=== PATIENT | female | born 1960 | race Caucasian/White ===

== ENCOUNTER → 2017-03-07 14:26 | Outpatient (CLI) | payer OTHER, SELFPAY ==
[2017-03-07 16:25] LABS: Thyroid Stimulating Hormone 0.99 uIU/ml (0.358-3.740)
== END ==
PROVIDERS: Visit Provider Otolaryngology
DX: E03.9 Hypothyroidism, unspecified (principal)
CPT/HCPCS: 36415; 82310; 84439; 84443

== ENCOUNTER → 2018-02-27 14:42 | Outpatient (CLI) | payer OTHER, SELFPAY ==
[2018-02-27 16:46] LABS: Calcium 8.7 mg/dL (8.5-10.1); Free T4 (Free Thyroxine) 1.28 ng/dl (0.76-1.46); Thyroid Stimulating Hormone 1.21 uIU/ml (0.358-3.740)
== END ==
PROVIDERS: Visit Provider Otolaryngology
DX: E01.0 Iodine-deficiency related diffuse (endemic) goiter (principal); E03.9 Hypothyroidism, unspecified
CPT/HCPCS: 36415; 82310; 84439; 84443

== ENCOUNTER → 2018-03-31 10:01 | Outpatient (CLI) | payer OTHER, SELFPAY ==
--- NOTE | 2018-03-31 10:12 | MM_ITS ---
MM Dig screening mamm BI w/CAD CAD Screening COMPARISON: Digital mammograms with CAD 01/30/2014 and 04/22/2015 INDICATION: There is no personal or family history of breast cancer TECHNIQUE: Standard CC and MLO images were obtained. R2 CAD reviewed. FINDINGS: The breasts are composed primarily of fat with minimal scattered fibroglandular densities throughout each breast. Again noted is a stable subtle area of asymmetric glandular density outer quadrant of the right breast. There are few microcalcifications in each breast. There is no suspicious lesion and there are no suspicious microcalcifications. IMPRESSION: Fatty type breast parenchyma with no suspicious lesion seen BI-RADS Category: 2 Benign Finding(s) RECOMMENDED FOLLOW-UP: 1YR - 1 YEAR FOLLOW-UP (A letter has been sent to the patient regarding results of the study.)
== END ==
PROVIDERS: PCP Internal Medicine Adolescent Medicine; Visit Provider Internal Medicine Adolescent Medicine
DX: Z12.31 Encounter for screening mammogram for malignant neoplasm of breast (principal)
CPT/HCPCS: 77067

== ENCOUNTER → 2019-03-19 12:36 | Outpatient (CLI) | payer OTHER, SELFPAY ==
[2019-03-19 13:24] LABS: Free T4 (Free Thyroxine) 1.25 ng/dl (0.76-1.46); Thyroid Stimulating Hormone 1.45 uIU/ml (0.358-3.740)
== END ==
PROVIDERS: Visit Provider Otolaryngology
DX: E03.9 Hypothyroidism, unspecified (principal)
CPT/HCPCS: 36415; 84439; 84443

== ENCOUNTER → 2019-09-26 07:55 | Outpatient (CLI) | payer OTHER, SELFPAY ==
[2019-09-26 14:24] LABS: Chloride 104 mmol/L (98-107); Sodium 139 mmol/L (136-145)
[2019-09-26 14:25] LABS: Potassium 4.5 mmoL/L (3.5-5.1)
[2019-09-26 14:27] LABS: Alanine Aminotransferase 29 U/L (12-78); Albumin Level 3.9 g/dl (3.5-5.0); Albumin/Globulin Ratio 1.3 (1.1-1.8); Alkaline Phosphatase 100 U/L (38-126); Anion Gap 11.5 mEq/L (5-15); Aspartate Amino Transferase 27 U/L (14-36); Bilirubin,Total 0.7 mg/dl (0.2-1.3); Blood Urea Nitrogen 23 mg/dl (7-17); Calcium 9.5 mg/dl (8.4-10.2); Carbon Dioxide 28 mmol/L (22.0-30.0); Cholesterol 191 mg/dl (140-200); Estimated Glomerular Filt Rate 74 ml/min (>60); GFR (African American) 89 ML/MIN (>60); Globulin 3.1 g/dL (1.3-3.2); Glucose 102 mg/dl (74-100); Triglycerides 145 mg/dl (30-150); VLDL Cholesterol 29 mg/dL (0-40)
[2019-09-26 14:28] LABS: Chol/HDL Ratio 3.1 (1-3.5); HDL Cholesterol 62 mg/dl (40-60)
[2019-09-26 14:39] LABS: Direct LDL Cholesterol 103.86 mg/dL (100-129)
[2019-09-26 14:45] LABS: Triiodothryronine (T3) Uptake 37 % (23.5-40.5)
[2019-09-26 14:46] LABS: Free Thyroxine Index 3.6 ug/dL (5.93-13.13); T4 (Thyroxine) 9.8 ug/dl (5.53-11.0)
[2019-09-26 14:59] LABS: Thyroid Stimulating Hormone 0.78 uIU/mL (0.465-4.68)
[2019-09-26 16:08] LABS: 25-OH Vitamin D, Total 35.7 ng/mL (30-100)
== END ==
PROVIDERS: Visit Provider Internal Medicine Adolescent Medicine
DX: E78.5 Hyperlipidemia, unspecified (principal); E55.9 Vitamin D deficiency, unspecified; E04.2 Nontoxic multinodular goiter
CPT/HCPCS: 36415; 80053; 80061; 82306; 84436; 84443; 84479

== ENCOUNTER → 2019-10-15 15:49 | Outpatient (CLI) | payer OTHER, SELFPAY ==
--- NOTE | 2019-10-15 15:52 | MM_ITS ---
PROCEDURE: MM DIG SCREENING MAMM BI W/CAD Digital Breast Tomosynthesis Included CLINICAL INDICATION: SCREENING There is no personal or family history of breast cancer. COMPARISON: MG DMSB DIG MAMM-SCREEN [place] from 01/30/2014 MG DMSB DIG MAMM-SCREEN [place] from 04/22/2015 MG SCBI MM Dig screening mamm BI w/CAD from 03/31/2018 TECHNIQUE: Standard CC and MLO images and 3D Tomosynthesis was obtained. R2 CAD reviewed. FINDINGS: The breasts are composed primarily of fat with mild scattered fibroglandular densities throughout each breast. There are few benign-appearing microcalcifications in each breast. There is no suspicious lesion in either breast and no suspicious microcalcifications. IMPRESSION: Fibrofatty parenchyma with no suspicious lesions seen BI-RAD Category: 2 Benign Finding(s) FOLLOW-UP: 1YR 1 Year Follow-up (A letter has been sent to the patient regarding results of the study.) Dictated by: Dr. Stanley Cueva MD 10/16/2019 08:16 Dr. Stanley Cueva MD in [place] 10/16/2019 08:16
== END ==
PROVIDERS: PCP Internal Medicine Adolescent Medicine; Visit Provider Internal Medicine Adolescent Medicine
DX: Z12.31 Encounter for screening mammogram for malignant neoplasm of breast (principal)
CPT/HCPCS: 77063; 77067

== ENCOUNTER → 2020-03-21 16:22 | Outpatient (CLI) | payer OTHER, SELFPAY ==
[2020-03-21 17:55] LABS: Thyroid Stimulating Hormone 1.99 uIU/mL (0.465-4.68)
== END ==
PROVIDERS: Visit Provider Otolaryngology
DX: E03.9 Hypothyroidism, unspecified (principal)
CPT/HCPCS: 36415; 84439; 84443

== ENCOUNTER → 2020-03-26 07:11 | Outpatient (CLI) | payer OTHER, SELFPAY ==
[2020-03-26 14:55] LABS: Chloride 106 mmol/L (98-107); Potassium 4.2 mmoL/L (3.5-5.1); Sodium 140 mmol/L (136-145)
[2020-03-26 14:58] LABS: Alanine Aminotransferase 20 U/L (12-78); Albumin Level 3.9 g/dl (3.5-5.0); Albumin/Globulin Ratio 1.2 (1.1-1.8); Alkaline Phosphatase 96 U/L (38-126); Anion Gap 9.2 mEq/L (5-15); Aspartate Amino Transferase 24 U/L (14-36); Bilirubin,Total 0.7 mg/dl (0.2-1.3); Blood Urea Nitrogen 22 mg/dl (7-17); Calcium 9.2 mg/dl (8.4-10.2); Carbon Dioxide 29 mmol/L (22.0-30.0); Chol/HDL Ratio 3.2 (1-3.5); Cholesterol 184 mg/dl (140-200); Estimated Glomerular Filt Rate 73 ml/min (>60); GFR (African American) 89 ML/MIN (>60); Globulin 3.3 g/dL (1.3-3.2); Glucose 108 mg/dl (74-100); HDL Cholesterol 57 mg/dl (40-60); Total Protein,Serum 7.2 g/dl (6.3-8.2); Triglycerides 173 mg/dl (30-150); VLDL Cholesterol 35 mg/dL (0-40)
[2020-03-26 15:03] LABS: Basophils % 0.4 % (0.1-2.0); Eosinophils # 0.1 K/mm3 (0.0-0.4); Eosinophils % 1.5 % (0.1-12.0); Hematocrit 38.9 % (37.0-47.0); Lymphocytes # 1.7 K/mm3 (0.7-4.5); Lymphocytes % 31.1 % (10-50); Mean Corpuscular HGB Conc 33.3 g/dL (31.8-35.4); Mean Corpuscular Hemoglobin 30.6 pg (27.0-31.2); Mean Corpuscular Volume 91.7 fl (81-99); Mean Platelet Volume 8.6 fl (7.4-10.4); Monocytes # 0.4 K/mm3 (0.1-1.0); Monocytes % 6.8 % (1.7-9.3); Neutrophils # 3.3 K/mm3 (1.8-7.8); Neutrophils % 60.2 % (37.0-80.0); Platelet Count 343 K/mm3 (142-424); Red Blood Count 4.24 M/mm3 (4.20-5.40); Red Cell Distribution Width 13.8 % (11.5-17.5); White Blood Count 5.5 K/mm3 (4.8-10.8)
[2020-03-26 15:10] LABS: Direct LDL Cholesterol 91.65 mg/dL (100-129)
[2020-03-26 15:15] LABS: 25-OH Vitamin D, Total 37.4 ng/mL (30-100)
[2020-03-27 16:50] LABS: Hemoglobin A1C 5.6 % (4.0-6.0)
== END ==
PROVIDERS: Visit Provider Internal Medicine Adolescent Medicine
DX: E78.5 Hyperlipidemia, unspecified (principal); E55.9 Vitamin D deficiency, unspecified; R73.9 Hyperglycemia, unspecified
CPT/HCPCS: 36415; 80053; 80061; 82306; 83036; 85025

== ENCOUNTER → 2021-02-26 09:28 | Outpatient (CLI) | payer OTHER, SELFPAY ==
[2021-02-26 15:25] LABS: Alanine Aminotransferase 18 U/L (12-78); Albumin/Globulin Ratio 1.4 (1.1-1.8); Alkaline Phosphatase 115 U/L (38-126); Anion Gap 8.4 mEq/L (5-15); Aspartate Amino Transferase 26 U/L (14-36); Bilirubin,Total 0.4 mg/dl (0.2-1.3); Blood Urea Nitrogen 28 mg/dl (7-17); Carbon Dioxide 29 mmol/L (22.0-30.0); Chloride 105 mmol/L (98-107); Cholesterol 183 mg/dl (140-200); Estimated Glomerular Filt Rate 73 ml/min (>60); GFR (African American) 89 ML/MIN (>60); Globulin 2.9 g/dL (1.3-3.2); Glucose 102 mg/dl (74-100); HDL Cholesterol 61 mg/dl (40-60); Potassium 4.4 mmoL/L (3.5-5.1); Sodium 138 mmol/L (136-145); Total Protein,Serum 6.9 g/dl (6.3-8.2); Triglycerides 72 mg/dl (30-150); VLDL Cholesterol 14 mg/dL (0-40)
[2021-02-26 15:36] LABS: Direct LDL Cholesterol 97.43 mg/dL (100-129)
[2021-02-26 15:40] LABS: 25-OH Vitamin D, Total 40.9 ng/mL (30-100)
== END ==
PROVIDERS: Visit Provider Nurse Practitioner Family
DX: Z00.00 Encounter for general adult medical examination without abnormal findings (principal); I10 Essential (primary) hypertension; E78.5 Hyperlipidemia, unspecified; E89.0 Postprocedural hypothyroidism; E55.9 Vitamin D deficiency, unspecified
CPT/HCPCS: 36415; 80053; 80061; 82306; 84443

== ENCOUNTER → 2021-03-17 12:45 | Outpatient (CLI) | payer OTHER, SELFPAY ==
--- NOTE | 2021-03-17 12:48 | MM_ITS ---
PROCEDURE INFORMATION: Exam: MG Bilateral Screening 3D Mammography Exam date and time: 03/17/2021 12:48 PM Age: 60 years old Clinical indication: Screening mammogram TECHNIQUE: Imaging protocol: Bilateral Screening tomosynthesis and 2D mammography including computer-aided detection (CAD) when performed. COMPARISON: 1. MG MM DIG SCREENING MAMM BI W/CAD 10/15/2019 3:52 PM 2. MG SCBI MM Dig screening mamm BI w/CAD 03/31/2018 10:36 AM 3. MG DMSB DIG MAMM-SCREEN [place] 04/22/2015 3:40 PM 4. MG DMSB DIG MAMM-SCREEN [place] 01/30/2014 4:52 PM FINDINGS: MAMMOGRAPHY: Breast composition: There are scattered areas of fibroglandular density. Mass: Mass within the upper outer right middle 1/3 measuring 10 mm should be further assessed with spot views in CC/MLO projection. Ultrasound should also be performed. Architectural distortion: No new or suspicious architectural distortion. Calcifications: No new or suspicious calcifications are present Asymmetric density: There is a 6 mm focal asymmetry within the anterior-middle 1/3 left breast , only well delineated 6 cm posterior to the left nipple on CC view. This should be further assessed with spot views in CC/MLO and full lateral projection to confirm and further characterize. Ultrasound should also be performed. Skin thickening: None. Axillary adenopathy: None. IMPRESSION: 1. Mass within the upper outer right middle 1/3 measuring 10 mm should be further assessed with spot views in CC/MLO projection. Ultrasound should also be performed. 2. There is a 6 mm focal asymmetry within the anterior-middle 1/3 left breast , only well delineated 6 cm posterior to the left nipple on CC view. This should be further assessed with spot views in CC/MLO and full lateral projection to confirm and further characterize. Ultrasound should also be performed. ASSESSMENT: BI-RADS category 0: Incomplete-need additional imaging evaluation
== END ==
PROVIDERS: PCP Internal Medicine Adolescent Medicine; Visit Provider Internal Medicine Adolescent Medicine
DX: Z12.31 Encounter for screening mammogram for malignant neoplasm of breast (principal)
CPT/HCPCS: 77063; 77067

== ENCOUNTER → 2021-04-08 14:26 | Outpatient (CLI) | payer OTHER, SELFPAY ==
--- NOTE | 2021-04-08 14:30 | MM_ITS ---
PROCEDURE INFORMATION: Exam: US Right Breast, Complete US Left Breast, Complete MG Bilateral Diagnostic Breast Tomosynthesis Exam date and time: 04/08/2021 2:30 PM Age: 60 years old Clinical indication: Callback for additional assessment of right upper outer 10 mm mass and left anterior 6 mm asymmetry only identified on CC view screening mammogram 03/17/21 TECHNIQUE: Imaging protocol: Complete ultrasound of all four quadrants of the Right breast and the retroareolar regions, including ultrasound of the axilla when performed. Complete ultrasound of all four quadrants of the Left breast and the retroareolar regions, including ultrasound of the axilla when performed. Bilateral Diagnostic tomosynthesis and 2D mammography including computer-aided detection (CAD) when performed. Unilateral or bilateral exam. COMPARISON: 1. MG MM DIG SCREENING MAMM BI W/CAD 03/17/2021 12:57 PM 2. MG MM DIG SCREENING MAMM BI W/CAD 10/15/2019 3:52 PM 3. MG SCBI MM Dig screening mamm BI w/CAD 03/31/2018 10:36 AM 4. MG DMSB DIG MAMM-SCREEN [place] 04/22/2015 3:40 PM FINDINGS: MAMMOGRAPHY: Right: No persistent mass, architectural distortion, or suspicious calcifications are present to suggest malignancy. Findings from recent screening mammography probably reflect overlapping fibroglandular tissue Left: No persistent mass, architectural distortion, or suspicious calcifications are present to suggest malignancy. Findings from recent screening mammography probably reflect overlapping fibroglandular tissue ULTRASOUND: Bilateral complete breast ultrasound was performed including 4 quadrants, retroareolar and axillary images No suspicious solid or cystic mass is present. No benign-appearing solid or cystic mass is present. No architectural distortion or shadowing is present. No axillary adenopathy is present. IMPRESSION: No mammographic or sonographic evidence of malignancy. Recommend annual screening mammography unless otherwise clinically indicated. ASSESSMENT: BI-RADS category 1: Negative
== END ==
PROVIDERS: PCP Internal Medicine Adolescent Medicine; Visit Provider Internal Medicine Adolescent Medicine
DX: R92.8 Other abnormal and inconclusive findings on diagnostic imaging of breast (principal)
CPT/HCPCS: 76641; 77062; 77066; G0279

== ENCOUNTER → 2021-04-18 19:57 | Outpatient (CLI) | payer OTHER, SELFPAY | PROVIDERS: PCP Internal Medicine Adolescent Medicine; Visit Provider Surgery | DX: Z01.812 Encounter for preprocedural laboratory examination (principal); Z11.52 Encounter for screening for COVID-19; Z12.11 Encounter for screening for malignant neoplasm of colon | CPT/HCPCS: C9803; U0003; U0005 ==

== ENCOUNTER 2021-04-21 09:46 | Day surgery (SDC) | payer OTHER, SELFPAY ==
[2021-04-21] VITALS (8 sets, daily range): BP systolic 92–152; BP diastolic 54–84; PULSE 54–65; RESP 16; TEMP 36.9; O2SAT 94–98; BMI 33.6
--- NOTE | 2021-04-21 10:06 | HMH.ANESCL ---
[facility] Anesthesia Checklist - Patient Identification Patient Identification: Arm Band - Structural Data Admitted From: Home Planned Operative Procedure/s: Colonoscopy Consent for Planned Operative Procedure(s) Verified: Yes - NPO Status Verified Time NPO: 00:00 - Airway Assessment C-Spine Mobility Assessed: Yes TMJ Mobility Assessed: Yes Dentition: Good Dentition - Neurological Assessment Level of Consciousness: Awake Hx Seizures: No Numbness or tingling in extremities: No - Anesthesia Plan Anesthesia Risk discussed: Yes Anesthesia Plan: Verified ASA Class: II Anesthesia Type: MAC [facility] History I have reviewed the patient's past medical history: Yes Medical History: Reports:: Hyperlipidemia, Hypertension Denies:: Cancer, Diabetes Mellitus Type 1, Diabetes Mellitus Type 2, Seizures *Have you ever received a pneumonia vaccine?: No *Have you received a flu vaccine this season?: Yes Other Medical History: Reports: Thyroid Disease Anesthesia experience/problems:: None Other Surgeries: Yes: Thyroidectomy Amputation: No Fractures: No - *Social History Last grade of school completed: High school graduate Smoking Status: Never smoker Alcohol Intake: never Substance Use Type: denies use *Occupational Status:: employed Housing: house Household Members: family *Travel in the last 8 weeks: None Family Hx:: Heart Attack
--- NOTE | 2021-04-21 10:42 | HMH.SCOPE ---
- Procedure: Date: 04/21/21 Patient Date of :: 1960 Procedure Performed:: Colonoscopy Indications:: Screening Performing Provider:: Matthew Bruner MD Referring Provider:: . Sedation:: Monitored anesthesia care Procedure:: After informed consent was obtained the patient was taken to the endoscopy suite. Sedation ensued after the patient was transferred to the left lateral decubitus position. Pulse, blood pressure, and oxygen saturation were monitored throughout the procedure. Digital rectal exam revealed no significant abnormality. The colonoscope was placed in position. The entire colon was evaluated. The colonoscope was carefully removed and the patient was transferred to recovery in stable condition. Please see findings and specimens below for detail. Findings:: Bowel preparation relatively poor Hemorrhoidal tags Profound tortuosity/spasticity Specimens:: None Recommendations:: Repeat colonoscopy in 2-3 years secondary to limited bowel preparation, spasticity, and tortuosity. Complications:: No immediate with the exception of limited bowel preparation. Estimated blood obtained (mL): 0
== END 2021-04-21 11:38 | disposition home or self-care (01) ==
LOC: OUTP 09:47
PROVIDERS: PCP Internal Medicine Adolescent Medicine; Visit Provider Surgery
PROC: 0DJD8ZZ Inspection of Lower Intestinal Tract, Via Natural or Artificial Opening Endoscopic (ICD-10-PCS; CPT 45378; principal; 2021-04-21 10:30)
DX: Z12.11 Encounter for screening for malignant neoplasm of colon (principal); K56.2 Volvulus; K64.9 Unspecified hemorrhoids; E78.5 Hyperlipidemia, unspecified; I10 Essential (primary) hypertension; Z82.3 Family history of stroke; Z79.899 Other long term (current) drug therapy
CPT/HCPCS: 45378

== ENCOUNTER 2023-06-22 14:53 | Outpatient (POV) | payer OTHER, SELFPAY | END 2023-06-22 23:59 | disposition home or self-care (01) | LOC: SC 14:54 | PROVIDERS: Visit Provider Specialist/Technologist | DX: Z00.00 Encounter for general adult medical examination without abnormal findings (principal) ==

== ENCOUNTER 2024-03-19 09:54 | Outpatient (CLI) | payer OTHER, SELFPAY ==
--- NOTE | 2024-03-19 09:55 | US_ITS ---
FINAL REPORT TECHNIQUE: Real-time grayscale and color ultrasound of the thyroid was performed. CLINICAL HISTORY: history of Thyroidectomy COMPARISON: 12/08/2015 FINDINGS: Patient has undergone thyroidectomy since the previous exam. There is a small echogenic focus with shadowing in the left thyroid fossa measuring 4 mm. This may be related to dystrophic or postoperative calcification. No definite residual thyroid tissue identified. IMPRESSION: No definite residual thyroid tissue identified. Reviewed, Interpreted and Dictated by Alex Mccann MD Transcribed by Shona Donis Authenticated and [facility]
[2024-03-19 12:17] LABS: Free T4 (Free Thyroxine) 1.41 ng/dl (0.78-2.19)
[2024-03-19 12:32] LABS: Thyroid Stimulating Hormone 0.93 uIU/mL (0.465-4.68)
== END 2024-03-19 23:59 | disposition home or self-care (01) ==
PROVIDERS: PCP Internal Medicine Adolescent Medicine; Visit Provider Nurse Practitioner
DX: E03.9 Hypothyroidism, unspecified (principal)
CPT/HCPCS: 36415; 76536; 84439; 84443

== ENCOUNTER 2024-12-11 12:51 | Outpatient (CLI) | payer OTHER, SELFPAY ==
--- OUTSIDE RECORDS SUMMARY | 2024-05-19 17:30 | XMS_ITS ---
Author Organization [facility] Address [address] [facility] [address] [facility] [address] [place] [address] Care Team Providers Care Substation Operator Transforming Name Role Phone Cristiano Smith Primary Care Provider Migration, Provider Unavailable Unavailable REASON FOR VISIT [facility] Conversion Encounter Medications Medication SIG (Take, Route, Frequency, Duration) Notes Start Date End Date Status Atorvastatin Calcium 40 MG 1 tab(s) oral ly once a day (at bedtime); Duration: 90 days Active Meloxicam 15 MG 1/2 tab(s) orally on ce a day; Duration: 30 day(s) Active Levothyroxine Sodium 137 MCG 1 tab(s) or ally once a day; Duration: 90 days Active Carvedilol 12.5 MG 1 tab(s) orally 2 ti mes a day; Duration: 90 days 12/29/2023 Active hydroCHLOROthiazide 25 MG 1 tab(s) orall y once a day; Duration: 90 days 02/23/2024 Active Encounters Encounter Location Date Provider Diagnosis [facility] [address] [place] [address] [facility] [address] [place] [address] 05/19/2024 Provider Migration Hypertension, essential I10 Assessments Encounter Date Diagnosis (ICD Code) Assessment Notes Treatment Notes Treatment Clinical Notes Section Notes 05/19/2024 Hypertension, essential (ICD-10 - I10) Plan Of Treatment Medication Medication Name Sig Start Date Stop Date Notes Atorvastatin Calcium 40 MG 1 tab(s) oral ly once a day (at bedtime); Duration: 90 days hydroCHLOROthiazide 25 MG 1 tab(s) orall y once a day; Duration: 90 days 02/23/2024 Next Appt Details Provider Name:Cristiano Robles Luis, 01/29/2025 10:00:00 AM, [address], [address], Progress Notes * Nidhi FLANNERY LDOB: [birth year] (64 yo F)Acc No.[id number]:05/19/2024 Patient: Nidhi HOFFMAN Provider: Latha rudolph Migration :1960 A ge:63 Y S ex:Female Date:05/19/2024 Address:[address] [place] [address], [id number] Pcp:Cristiano Smith Subjective: * Chief Complaints: * 1 . Multum To Medispan Conversion Encounter. * Medical History: * Medications: T aking Meloxicam 15 MG Tablet 1/2 tab(s) orally once a day , Taking Levothyroxine Sodium 137 MCG Tablet 1 tab(s) orally once a day , Taking Carvedilol 12.5 MG Tablet 1 tab(s) orally 2 times a day Objective: * Vitals: Assessment: * Assessment: 1. H ypertension, essential - I10 Plan: * Treatment: 2. O thers Refill Atorvastatin Calcium Tablet, 40 MG, 1 tab(s), orally, once a day (at bedtime), 90 days, 90, Refills 3. * * Electronic signature of Prov ider Migration on 12/11/2024 at 01:24 PM EDT Sign off status: Pending * Provider: Latha rudolph Migration Date: 0 05/19/2024 Generated for Kenroy ruiz/Fadumo/Meñoitting on: 1 01:24 PM EDT
--- OUTSIDE RECORDS SUMMARY | 2024-10-19 10:48 | XMS_ITS ---
Author Organization [facility] Address [address] [facility] [address] [facility] [address] [place] [address] Care Team Providers Care Radiation Engineer Name Role Phone Cristiano Smith Primary Care Provider REASON FOR VISIT Neck CT Encounters Encounter Location Date Provider Diagnosis [facility] [address] [facility] [address] [facility] [address] [place] [address] 10/19/2024 Cristiano Martinezjoseph Mass of soft tissue of neck M79.89 Assessments Encounter Date Diagnosis (ICD Code) Assessment Notes Treatment Notes Treatment Clinical Notes Section Notes 10/19/2024 Mass of soft tissue of neck (ICD-10 - M79.89) Plan Of Treatment Pending Test Test Name Order Date CT NECK SOFT TISSUE WOW 10/19/2024 Next Appt Details Provider Name:Cristiano Travisyuko Smith, 01/29/2025 10:00:00 AM, [address] [place] [address], [id number], Progress Notes * Nidhi FLANNERY LDOB: [birth year] (63 yo F)Acc No.[id number]:10/19/2024 Patient: Naomy SIEGELNidhi :1960 A ge:63 Y S ex:Female Address:[address] [place] [address], [place], [address] Subjective: * Chief Complaints: * N nikhil CT * Medical History: * Surgical History: * Hospitalization/Major Diagno stic Procedure: * Medications: Objective: * Vitals: * Physical Examination: Assessment: * Assessment: 1. M ass of soft tissue of neck - M79.89 (Primary) Plan: * Treatment: * Procedure Codes: * true * Date: Generated for Kenroy ruiz/Fadumo/Phil on: 01:24 PM EDT
--- OUTSIDE RECORDS SUMMARY | 2024-10-23 07:15 | XMS_ITS ---
Author Organization [facility] Address [address] [place] [address] Care Team Providers Care Flow Match Sofa Cutter Name Role Phone Cristiano Smith Primary Care Provider [phone] Allergies No Known Allergies REASON FOR VISIT 3 month ck, has not heard about appointment for biopsy Medications Medication SIG (Take, Route, Frequency, Duration) Notes Start Date End Date Status hydroCHLOROthiazide 25 MG 1 tab(s) orall y once a day; Duration: 90 days Active Carvedilol 12.5 MG 1 tab(s) orally 2 ti mes a day; Duration: 90 days 12/29/2023 Active Atorvastatin Calcium 40 MG 1 tab(s) oral ly once a day (at bedtime); Duration: 90 days Active Levothyroxine Sodium 137 MCG 1 tab(s) or ally once a day; Duration: 90 days Active Meloxicam 15 MG 1/2 tab(s) orally on ce a day; Duration: 30 day(s) Active Immunizations Vaccine Route Administration Date Status Comme nts Flublok IM Intramuscular 10/23/2024 Administered Vital Signs Temperature 98.5 degrees Fahrenheit 10/24/19 25 Blood pressure systolic 138 mm Hg 10/24/19 25 Blood pressure diastolic 90 mm Hg 025 Heart Rate 74 /min 10/23/2024 Height 5 ft 3 in in 10/23/2024 Weight 198 lbs 10/23/2024 BMI 35.07 kg/m2 10/23/2024 Encounters Encounter Location Date Provider Diagnosis [address] [address] 10/23/2024 Cristiano Smith Immunization(s) administered Z23 ; Hypertension, essential I10 ; Multinodular goiter E04.2 and Neck mass R22.1 Assessments Encounter Date Diagnosis (ICD Code) Assessment Notes Treatment Notes Treatment Clinical Notes Section Notes 10/23/2024 Immunization(s) administered (ICD-10 - Z23) 10/23/2024 Hypertension, essential (ICD-10 - I10) Patient reports increased stress at home, which I believe may be a contributing factor to her elevated BP. Based on patient's history of signficantly elevated BP above her baseline, I believe her HTN is refractory to the lisinopril/HCTZ 12.5mg/10mg half-tablet. Blood pressure is doing well. No change in plan 10/23/2024 Multinodular goiter (ICD-10 - E04.2) Resolved per thyroidectomy in 2017. Currently taking levothyroixine for long-term management of TSH and T4 levels. Will continue to montior with serum TSH. Status post resection. Clinically and biochemically euthyroid 10/23/2024 Neck mass (ICD-10 - R22.1) New neck mass that has developed since March on ultrasound. Ultrasound done, showing mass. Needs CT without contrast to help surgeons better delineate biopsy approach. Plan Of Treatment Treatment Notes Assessment Notes Hypertension, essential Blood pressure i s doing well. No change in plan Multinodular goiter Status post resectio n. Clinically and biochemically euthyroid Neck mass New neck mass that has developed since March on ultrasound. Ultrasound done, showing mass. Needs CT without contrast to help surgeons better delineate biopsy approach. Next Appt Details Follow Up: prn,3 Months, [place] son: Provider Name:Cristiano Travisyuko Smith, 01/29/2025 10:00:00 AM, [address] [facility] [address], [place], [address], Progress Notes * Nidhi FLANNERY LDOB: [birth year] (63 yo F)Acc No.[id number]:10/23/2024 Progress Notes Patient: Ofe HOFFMANcheyanne Valladares Provider: Fern Smith MD :1960 A ge:63 Y S ex:Female Date:10/23/2024 Address:[address] [place] [address], [id number] Subjective: * Chief Complaints: * 1 . 3 month ck. 2. Has not heard about appointment for biopsy. * HPI: g en: Nidhi presents for a follow-up of her blood pressure. We also need to continue workup of the neck mass that was found on ultrasound. See notes below about this issue. * Medical History: H ypertension, Hyperlipidemia, vitamin D deficiency status post replacement therapy, Goiter with thyroid nodules, Normal mammogram 03/2018 and 10/2019 - masses in 2020, early repeat with normal mamm and US in 03/2021. * Surgical History: c -section , thyroidectomy 03/2016, colonoscopy 05/30. * Hospitalization/Major Diagno stic Procedure: eboni dozier . * Family History: F ather: . M other: , HTN, [place]. P aternal Grand Father: . P aternal Grand Mother: . M aternal Grand Father: . M aternal Grand Mother: . P aternal uncle: . P aternal aunt: . M aternal uncle: .?Maternal aunt: . S iblings: alive, HTN. C hildren: alive. 2 sister(s) . 1 daughter(s) . . * Social History: S moking A re you a:: nonsmoker. R ecreational drug use: no. Exercise: no. Home smoke detector use: yes. Caffeine: yes, 2-3 cups coffee daily. Living Will: No. Alcohol: no. Sexually active: no. Travel outside [place]: no. 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 * Medications: T aking Atorvastatin Calcium 40 MG Tablet 1 tab(s) orally once a day (at bedtime) , Taking Meloxicam 15 MG Tablet 1/2 tab(s) orally once a day , Taking Levothyroxine Sodium 137 MCG Tablet 1 tab(s) orally once a day , Taking Carvedilol 12.5 MG Tablet 1 tab(s) orally 2 times a day , Taking hydroCHLOROthiazide 25 MG Tablet 1 tab(s) orally once a day , Medication List reviewed and reconciled with the patient * Allergies: N .K.D.A. Objective: * Vitals: N urse: dw, Pain: 0, Temp: 98.5, RR: 18, HR: 74, BP: 138/90, Ht: 5 ft 3 in, Wt: 198, BMI:35.07. * Examination: G eneral Examination: General P leasant and Cooperative, NAD on RA,. Heart: R egular Rate and Rhythm, no murmur, rubs or gallops. HEENT: p harynx and tonsils normal, TM's normal. Neurologic Exam: n o focal signs,, normal sensation, strength, tone and reflexes,, Alert and oriented x 3. Back: n ormal,. N nikhil has thyroidectomy scar, no palpable masses in the anterior aspect. Assessment: * Assessment: 1. H ypertension, essential - I10 (Primary) N otes :Patient reports increased stress at home, which I believe may be a contributing factor to her elevated BP. Based on patient's history of signficantly elevated BP above her baseline, I believe her HTN is refractory to the lisinopril/HCTZ 12.5mg/10mg half-tablet. 2 . I mmunization(s) administered - Z23 3 . M ultinodular goiter - E04.2 N otes :Resolved per thyroidectomy in 2017. Currently taking levothyroixine for long-term management of TSH and T4 levels. Will continue to montior with serum TSH. 4 . N nikhil mass - R22.1 Plan: * Treatment: 2. M ultinodular goiter Notes: Status post resection. Clinically and biochemically euthyroid 3. N nikhil mass Notes: New neck mass that has developed since March on ultrasound. Ultrasound done, showing mass. Needs CT without contrast to help surgeons better delineate biopsy approach. * Immunizations: Flublok : 0.5 mL (Route: Intramuscular) given by BATSHEVA Hanks on Left Deltoid (Immunization(s) administered) * Procedure Codes: 9 0682 Flublok, [address]59[address] ADMINISTRATION IMMUNIZATION ONE VACCINE * Follow Up: p rn,3 Months * * Sign off status: Completed true * Provider: Fern Smith MD Date: 0 10/23/2024 Generated for Kenroy ruiz/Fadumo/eTransmitting on: 1 01:23 PM EDT History and Physical Notes * HPI (History of Present Illness) Category Sub-Category Detail Notes Category Not es gen Terrell presents for a follow-up of her blood pressure. We also need to continue workup of the neck mass that was found on ultrasound. See notes below about this issue Examination Category Sub-Category Detail Notes Category Not es General Examination HEENT: pharynx and tonsils normal, TM's normal Neck has thyroidectomy scar, no palpable masses in the anterior aspect Heart: Regular Rate and Rhy thm, no murmur, rubs or gallops Neurologic Exam: no focal signs,, nor mal sensation, strength, tone and reflexes,, Alert and oriented x 3 Back: normal, General Pleasant and Coopera tive, NAD on RA,
--- OUTSIDE RECORDS SUMMARY | 2024-10-25 13:00 | XMS_ITS ---
Author Organization [facility] Address [address] [place] [address] Care Team Providers Care Center Director Lead Teacher Name Role Phone Cristiano Terry Primary Care Provider Results Component Value Reference Range Notes CT NECK SOFT TISSUE W Reviewed date:11/01/2024 04:53:37 PM Interpretation: Performing Lab: Notes/Report: [address] [place] [address] Name: ILYA FLANNERY Exam Date: 11/01/2024 : 1960 Age 63 years Gender: F Physician: CRISTIANO TERRY Facility: [facility] Facility HSV: Outpatient Exam: CT NECK SOFT TISSUE W CT NECK WITH IV CONTRAST 11/01/2024 8:31 AM CDT CLINICAL INDICATION: Female, [address] was performed with IV contrast. Dose modulation, automated exposure control, and/or interative reconstruction technique used for dose reduction. * Superior aspect of the lungs are unremarkable. 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 * Several dental caries, dedicated MR examination recommended. * Mild mucosal thickening within the left maxillary sinus. * Status post thyroidectomy. * Marker within the left anterior para midline neck define the area of palpable abnormality. Minimal increased soft tissue asymmetry, as noted on image #94 of series 3 in the region of the thyroid bed, anterior and medial to the jugular vein, however, a discrete mass is not identified, see ultrasound report and images August 21, 2024 defining irregular area of hypoechogenicity. * No visceral mucosal space mass is identified. * The fluid attenuating mass with enhancement to suggest presence of abscess. * Several small bilateral neck lymph nodes are present. * IMPRESSION: * Status post thyroidectomy. * No discrete mass is identified, asymmetry in the left thyroid bed, better defined by ultrasound August 21, 2024 Electronically signed by: Duarte Soto MD 11/01/2024 09:41 AM EDT RP Dictated By: Duarte Soto Transcribed By: Transcribed On: 11/01/2024 9:31 AM Electronically signed by: Duarte Soto 11/01/2024 Thank you for referring LENORE FLANNERYLY to [facility]. Legally authenticated by ADIEL HENDRICKS MD 2024-11-01 09:31:00 REASON FOR VISIT new order Encounters Encounter Location Date Provider Diagnosis [facility] [address] [facility] [address] [place] [address] 10/25/2024 Cristiano Terry Mass of soft tissue of neck M79.89 Assessments Encounter Date Diagnosis (ICD Code) Assessment Notes Treatment Notes Treatment Clinical Notes Section Notes 10/25/2024 Mass of soft tissue of neck (ICD-10 - M79.89) Plan Of Treatment Next Appt Details Provider Name:Cristiano Terry, 01/29/2025 10:00:00 AM, [address] [place] [address], [id number], Progress Notes * Ilya FLANNERY LDOB: [birth year] (63 yo F)Acc No.[id number]:10/25/2024 Patient: Ilya HOFFMAN :1960 A ge:63 Y S ex:Female Address:[address] [place] [address], [id number] Subjective: * Chief Complaints: * N ew order * Medical History: * Surgical History: * Hospitalization/Major Diagno stic Procedure: * Medications: Objective: * Vitals: * Physical Examination: Assessment: * Assessment: 1. M ass of soft tissue of neck - M79.89 Plan: * Treatment: * * Procedure Codes: * true * Date: Generated for Kenroy ruiz/Fadumo/Phil on: 01:24 PM EDT
--- NOTE | 2024-12-11 13:00 | US_ITS ---
FINAL REPORT CLINICAL HISTORY: evaluate area around where thyroid should be COMPARISON: 03/19/2024 FINDINGS: Limited sonographic images were obtained of the soft tissues of the neck. There are several echogenic shadowing foci in the left thyroid fossa favored to represent postoperative dystrophic calcifications from prior thyroidectomy. IMPRESSION: Progressive dystrophic calcifications in the left thyroid fossa. Reviewed, Interpreted and Dictated by Alex Mccann MD Transcribed by Shona Doins Authenticated and [facility][1]
--- OUTSIDE RECORDS SUMMARY | 2024-12-11 13:25 | XMS_ITS | Patient Health Record ---
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 [address] Name: NIDHI FLANNERY Exam Date: 11/01/2024 : 1960 Age 63 years Gender: F Physician: CRISTIANO TERRY Facility: [facility] Facility HSV: Outpatient Exam: CT NECK [...] Duarte Soto 11/01/2024 Thank you for referring NIDHI FLANNERY to [facility]. Legally authenticated by ADIEL HENDRICKS MD 2024-11-01 09:31:00 CREATININE Reviewed date:11/01/2024 09:26:51 AM Interpretation: Performing Lab: Notes/Report: CREATININE 0.9 0.6-1.0 mg/dL ESTIMATED GLOM FILTRATION RATE 72 >60- mL/min GFR LIMITATION: The eGFR equation CKD-EPI 2020 is not applicable for pediatric patients or greater than 90 years of age. The following conditions may alter the GFR result: extremes in body size, malnutrition or obesity, skeletal muscle disease, paraplegia or quadriplegia, vegetarian diet or rapidly changing kiney function. Note Unless otherwise noted testing performed at: [place] [id number] Chetan Watt MD CLIA: [id number] BUN Reviewed date:11/01/2024 09:26:51 AM Interpretation: Performing Lab: Notes/Report: BLOOD UREA NITROGEN 25 7-18 mg/dL Note Unless otherwise noted testing performed at: [address] [address] Chetan Watt MD CLIA: [id number] LIPID PANEL, STANDARD ([id number]) Reviewed date:03/27/2024 11:14:57 AM Interpretation: Performing Lab:CB, [facility] [id number] [facility], [facility] SystemIknfJP[address] Dennis Royal Notes/Report: NON-FASTING; NON-FASTING; NON-FASTING; NON-FASTING FASTING:NO FASTING: NO CHOLESTEROL, TOTAL 197 <200 mg/dL HDL CHOLESTEROL 50 > OR = 50 mg/dL TRIGLYCERIDES 453 <150 mg/dL If a non-fasting specimen was collected, consider repeat triglyceride testing on a fasting specimen if clinically indicated. Charli et al. J. of Clin. Lipidol. 2015;9:129-169. LDL-CHOLESTEROL LDL cholesterol not calculated. Triglyceride levels greater than 400 mg/dL invalidate calculated LDL results. Reference range: <100 Desirable range <100 mg/dL for primary prevention; <70 mg/dL for patients with CHD or diabetic patients with > or = 2 CHD risk factors. LDL-C is now calculated using the Arnaud calculation, which is a validated novel method providing better accuracy than the Friedewald equation in the estimation of LDL-C. Wilder SS et al. SARAH. 2013;310(19): 1342-1387 (http://education.Goozzy.[employer]/faq/FAQ16 4) CHOL/HDLC RATIO 3.9 <5.0 (calc) NON HDL CHOLESTEROL 147 <130 mg/dL (calc) For patients with diabetes plus 1 major ASCVD risk factor, treating to a non-HDL-C goal of <100 mg/dL (LDL-C of <70 mg/dL) is considered a therapeutic option. COMPREHENSIVE METABOLIC JOANN Valladares ([id number]) Reviewed date:03/27/2024 11:14:57 AM Interpretation: Performing Lab:DARIN, [facility] [id number] P[facility], [facility] SystemBbtjDW[address] Dennis Royal Notes/Report: NON-FASTING; NON-FASTING; NON-FASTING; NON-FASTING FASTING:NO FASTING: NO GLUCOSE 92 65-139 mg/dL Non-fasting reference interval UREA NITROGEN (BUN) 25 7-25 mg/dL CREATININE 0.92 0.50-1.05 mg/dL EGFR 70 > OR = 60 mL/min/1.73m2 BUN/CREATININE RATIO SEE NOTE: 6-22 (calc) Not Reported: BUN and Creatinine are within reference range. SODIUM 140 135-146 mmol/L POTASSIUM 4.6 3.5-5.3 mmol/L CHLORIDE 100 98-110 mmol/L CARBON DIOXIDE 32 20-32 mmol/L CALCIUM 9.8 8.6-10.4 mg/dL PROTEIN, TOTAL 7.3 6.1-8.1 g/dL ALBUMIN 4.2 3.6-5.1 g/dL GLOBULIN 3.1 1.9-3.7 g/dL (calc) ALBUMIN/GLOBULIN RATIO 1.4 1.0-2.5 (calc) BILIRUBIN, TOTAL 0.4 0.2-1.2 mg/dL ALKALINE PHOSPHATASE 107 37-153 U/L AST 17 10-35 U/L ALT 16 6-29 U/L CBC (INCLUDES DIFF/PLT) (639 9) Reviewed date:03/27/2024 11:14:57 AM Interpretation: Performing Lab:DARIN [facility], [facility] HospitalOcwtJM[address] Dennis Royal Notes/Report: NON-FASTING; NON-FASTING; NON-FASTING; NON-FASTING FASTING:NO FASTING: NO WHITE BLOOD CELL COUNT 7.0 3.8-10.8 Thousand/ uL RED BLOOD CELL COUNT 4.53 3.80-5.10 Million/uL HEMOGLOBIN 14.2 11.7-15.5 g/dL HEMATOCRIT 42.0 35.0-45.0 % MCV 92.7 80.0-100.0 fL MCH 31.3 27.0-33.0 pg MCHC 33.8 32.0-36.0 g/dL For adults, a slight decrease in the calculated MCHC value (in the range of 30 to 32 g/dL) is most likely not clinically significant; however, it should be interpreted with caution in correlation with other red cell parameters and the patient's clinical condition. RDW 13.3 11.0-15.0 % PLATELET COUNT 314 140-400 Thousand/uL MPV 10.4 7.5-12.5 fL ABSOLUTE NEUTROPHILS 3864 8580-6327 cells/uL ABSOLUTE LYMPHOCYTES 2548 850-3900 cells/uL ABSOLUTE MONOCYTES 469 200-950 cells/uL ABSOLUTE EOSINOPHILS 91 15-500 cells/uL ABSOLUTE BASOPHILS 28 0-200 cells/uL NEUTROPHILS 55.2 LYMPHOCYTES 36.4 MONOCYTES 6.7 EOSINOPHILS 1.3 BASOPHILS 0.4 VITAMIN D,25-OH,TOTAL,IA (17 306) Reviewed date:03/27/2024 11:14:57 AM Interpretation: Performing Lab:CB, [facility]1800 [facility] CenterteThe [facility], [facility] PollardWinyLR[address] Dennis Royal Notes/Report: NON-FASTING; NON-FASTING; NON-FASTING; NON-FASTING FASTING:NO FASTING: NO VITAMIN D,25-OH,TOTAL,IA 18 30-100 ng/mL Vitamin D Status 25-OH Vitamin D: Deficiency: <20 ng/mL Insufficiency: 20 - 29 ng/mL Optimal: > or = 30 ng/mL For 25-OH Vitamin D testing on patients on D2-supplementation and patients for whom quantitation of D2 and D3 fractions is required, the QuestAssureD(TM) 25-OH VIT D, (D2,D3), LC/MS/MS is recommended: order code 56780 (patients >2yrs). See Note 1 Note 1 For additional information, please refer to http://education.AlignMed/faq/WDC417 (This link is being provided for informational/ educational purposes only.) US SOFT TISSUE LIMIT Reviewed date:09/04/2024 02:25:17 PM Interpretation: Performing Lab: Notes/Report: [address] [place] [address] Name: NIDHI FLANNERY Exam Date: 08/21/2024 : 1960 Age 63 years Gender: F Physician: CRISTIANO TERRY Facility: [facility] Facility HSV: Outpatient Exam: US SOFT TISSUE LIMIT US SOFT TISSUE Reason for study: History of thyroidectomy 5 years ago. Patient feels a knot on the anterior aspect of the neck. TECHNIQUE:Transverse and longitudinal sonography of the region of concern as indicated by the patient to the air sealing technician. COMPARISON:No prior study was read for comparison. FINDINGS: At the base of concern, there is new ill-defined irregular shaped area of relatively decreased echoes deep to the strap muscles that measures approximately 4.2 x 5.9 x 7.6 mm appears to contain some calcification. No identifiable thyroid tissue. IMPRESSION: Indeterminate lesion at the anterior neck region of concern adjacent to the thyroid bed. Differential diagnostic considerations would include postoperative hematoma or seroma. An infectious or neoplastic process is thought less likely but is not excludable. Recommend further characterization of this finding with neck CT without and with IV contrast. Electronically signed by: Jordin Murrieta DO 08/22/2024 02:19 PM EDT RP Dictated By: JORDIN MURRIETA Transcribed By: Transcribed On: 08/21/2024 2:49 PM Electronically signed by: JORDIN MURRIETA 08/21/2024 Thank you for referring NIDHI FLANNERY to [facility]. Legally authenticated by CATRINA BRENNER DO 2024-08-21 14:49:16 MRI SPINE LUMBAR WO Reviewed date:08/23/2024 08:31:38 PM Interpretation: Performing Lab: Notes/Report: [address] [place] [id number] Name: NIDHI FLANNERY Exam Date: 08/21/2024 : 1960 Age 63 years Gender: F Physician: CRISTIANO TERRY Facility: [facility] Facility HSV: Outpatient Exam: MRI SPINE LUMBAR WO EXAMINATION: MR LUMBAR SPINE WITHOUT IV CONTRAST INDICATION: lumbar pain no back pain. Right lower seminomas. TECHNIQUE: Multiplanar, multisequence MRI of the lumbar spine was performed without IV contrast. Unless specified, no imaging follow-up is recommended for incidental findings. COMPARISON: No prior study was submitted for comparison. FINDINGS: Alignment of the lumbar vertebrae appears anatomic. The vertebral body heights are preserved. No evidence for a marrow replacing process. The visualized portion of the spinal cord in unremarkable. No obvious abnormality of the spinal nerves. The most caudal completely segmented vertebra is called L5. T12-L1: Normal disc height and signal. No obvious disc herniation, spinal stenosis or neuroforaminal narrowing. L1-L2: Disc space narrowing and disc dehydration. Disc bulging. Thecal sac deformity without significant spinal stenosis. No significant neural foraminal narrowing. L2-L3: Disc space narrowing and disc dehydration. Diffuse disc bulging. Moderate facet arthropathy with ligamentous thickening. Moderate spinal stenosis. Moderate bilateral neural foraminal narrowing with apparent abutment of the exiting L2 spinal nerves. L3-L4: Disc space narrowing and disc dehydration. Diffuse disc bulging. Moderate facet arthropathy with ligamentous thickening. Moderate spinal stenosis. Mild bilateral neural foraminal narrowing with apparent abutment of the exiting L3 nerves bilaterally. L4-L5: Disc space narrowing and disc dehydration. Diffuse disc bulging with central disc protrusion. Advanced facet arthropathy with ligamentous thickening. Severe spinal stenosis. Moderate bilateral neural foraminal narrowing with abutment of the exiting L4 nerves bilaterally. L5-S1: Disc space narrowing and disc dehydration. Diffuse disc bulging. Moderate facet arthropathy with ligamentous thickening. Mild spinal stenosis. Mild right and moderate left neural foraminal narrowing with abutment of the exiting L5 nerves bilaterally, worse on the left. No abdominopelvic aneurysm. No obvious paraspinal mass, fluid collection or inflammatory changes. T2 hyperintense lesions within each kidney, likely cysts. IMPRESSION: Multilevel degenerative disc disease and facet arthropathy with spinal stenosis, neural foraminal narrowing and neural encroachment, as described Legally authenticated by CATRINA BRENNER DO 2024-08-21 13:53:09 above. Incidentally noted T2 hyperintense lesions within each kidney, likely cysts. In the absence of referrable signs or symptoms, no routine imaging follow-up is recommended. Electronically signed by: Jordin Murrieta DO 08/22/2024 02:15 PM EDT Dictated By: JORDIN MURRIETA Transcribed By: Transcribed On: 08/21/2024 1:53 PM Electronically signed by: JORDIN MURRIETA 08/21/2024 Thank you for referring NIDHI FLANNERY to [facility]. Legally authenticated by CATRINA BRENNER DO 2024-08-21 13:53:09 ARTERIAL DUPLEX BILAT LOWER Reviewed date:09/04/2024 10:11:49 AM Interpretation: Performing Lab: Notes/Report: [address] [place] [id number] Name: NIDHI FLANNERY Exam Date: 08/21/2024 : 1960 Age 63 years Gender: F Physician: CRISTIANO TERRY Facility: [facility] Facility HSV: Outpatient Exam: ARTERIAL DUPLEX BILAT LOWER EXAMINATION: US LOWER EXTREMITY ARTERIES BILATERAL INDICATION: claudication Technique: B-mode, color and pulse Doppler ultrasound of both lower extremities. Comparison: No prior study was a minimal for comparison. FINDINGS: Right lower extremity: Biphasic flow within the right common femoral artery. Biphasic flow within the right superficial femoral and popliteal arteries. Biphasic flow within the right posterior tibial artery proximally with monophasic flow within the distal posterior tibial artery. Biphasic flow within the proximal anterior tibial artery. Monophasic dorsalis pedis artery flow. Biphasic flow within the right deep femoral artery. Peak systolic velocities were as follows: Common femoral artery: 100.0 cm/s. Deep femoral artery: 67.7 cm/s Proximal superficial femoral artery: 74.8 cm/s cm/s. Distal superficial femoral artery: 48.0 cm/s. cm/s Proximal popliteal artery: 85.0 cm/s Distal popliteal artery: 66.1 cm/s. Proximal posterior tibial artery: 77.2 cm/s Distal posterior tibial artery: 31.5 cm/s Proximal anterior tibial artery: 45.7 cm/s. Dorsalis pedis artery: 23.6 cm/s Left Lower extremity: Triphasic flow within the left common femoral artery. Triphasic flow within the left deep femoral artery. Biphasic left superficial femoral and popliteal artery flow. Biphasic flow within the proximal posterior tibial artery. Monophasic distal posterior tibial artery flow. Monophasic flow within the proximal anterior tibial artery. Monophasic dorsalis pedis artery flow. Peak systolic velocities were as follows: Common femoral artery: 100.0 cm/s. Deep femoral artery: 81.1 cm/s Proximal superficial femoral artery: 76.4 cm/s. Distal superficial femoral artery: 59.0 cm/s Proximal popliteal artery: 77.9 cm/s Distal popliteal artery: 60.6 cm/s. Proximal posterior tibial artery: 81.9 cm/s Distal posterior tibial artery: 72.4 cm/s Proximal anterior tibial artery: 41.9 cm/s. Dorsalis pedis artery: 53.9 cm/s IMPRESSION: Abnormal arterial waveforms within the bilateral lower extremities, as above, suggesting hemodynamically significant stenoses within the bilateral posterior Legally authenticated by CATRINA BRENNER DO 2024-08-21 14:49:30 tibial arteries and left anterior tibial artery. Biphasic flow within the right common femoral artery may indicate moderate aortoiliac stenosis. Consider further evaluation with abdominal aortic and lower extremity CTA. Electronically signed by: Jordin Murrieta DO 08/22/2024 02:26 PM EDT RP Dictated By: JORDIN MURRIETA Transcribed By: Transcribed On: 08/21/2024 2:49 PM Electronically signed by: JORDIN MURRIETA 08/21/2024 Thank you for referring NIDHI FLANNERY to [facility]. Legally authenticated by CATRINA BRENNER DO 2024-08-21 14:49:30 Reason For Referral Reason I sent orders for ul trasound of neck, MRI of lumbar spine and arterial Dopplers to [facility], please follow-up Diagnosis 1 Hypertension, essent ial (I10) Diagnosis 2 Lumbar neuralgia (M5 4.16) Diagnosis 3 Right leg pain (M79. 604) Diagnosis 4 Claudication (I73.9) Diagnosis 5 Right leg numbness ( R20.0) Diagnosis 6 Mass of soft tissue of neck (M79.89) Referral Organization [facility] Referring Provider First Name Cristiano Referring Provider Last Name Luis Referring Provider Speciality Internal edicine General Notes Radha Martinez 01:02:11 PM > Referral Priority Routine Referral Appointment Date 08/21/2024 Reason Abnormal PRANEETH - [facility] Diagnosis 1 Peripheral arterial disease (I73.9) Referral Organization [facility] Referring Provider First Name Cristiano Referring Provider Last Name Luis Referring Provider Speciality Internal edicine Referred Organization [facility] Referred Address [address], [place], [place],[address],[place] Referred Provider Specialty Vascular Anny yuridia General Notes Latanya Patino 2024 10:23:25 AM >sent to [facility] to schedule Referral Priority Routine Reason General Surgery at [facility] for Mass in neck- needs biopsy See Radiology reports Referral Organization [facility] Referring Provider First Name Cristiano Referring Provider Last Name Luis Referring Provider Speciality Internal edicine Referred Organization [facility] dionte Referrals Referred Address [address],[place], [place],[address],[place] Referred Provider Specialty General Surg shauna General Notes Latanya Patino 2024 09:50:52 AM >, Latanya Patino 10/16/2024 09:50:53 AM >, SukumarLatanya 10/18/2024 11:23:11 AM >Left vm with Gagandeep General Surgery Referral Priority Routine Reason ENT Diagnosis 1 Mass of soft tissue of neck (M79.89) Referral Organization [facility] Referring Provider First Name Cristiano Referring Provider Last Name Luis Referring Provider Speciality Internal M edicine General Notes Radha Martinez 04:52:26 PM > faxed and they will call her about appt Referral Priority Routine Medications Medication SIG (Take, Route, Frequency, Duration) [...] Vaccine Route Administration Date Status Comme nts SHINGRIX IM Intramuscular 03/29/2023 Administered SHINGRIX IM Intramuscular 06/30/2023 Administered Prevnar PCV-20 (Pneumococcal conjugate 20) IM Intramuscular 09/23/2022 Administered Influenza-Fluzone 3+years (NON-MEDICARE) IM Intramuscular 12/24/2014 Administered Flublok IM Intramuscular 10/23/2024 Administered Boostrix IM Intramuscular 09/23/2022 Administered Arexvy IM Intramuscular 03/29/2023 Administered Problems Problem Type SNOMED Code ICD Code Onset Dates Problem Status W/U Status Risk Notes Problem Obese class I (finding) (458296442206548 ) Obesity (BMI 30.0-34.9) (E66.9) Active confirmed Problem Constipation (52395691) Constipation (K59.00) Active confirmed Problem Vitamin D deficiency (69552091) Vitamin D deficiency (E55.9) Active confirmed Problem Essential hypertension (56675246) Essential hypertension (I10) Active confirmed Problem Hyperlipidemia (77920876) Hyperlipemia, idiopathic familial (E78.5) Active confirmed Problem Essential hypertension (70919493) Hypertension, essential (I10) Active confirmed Patient repo rts increased stress at home, which I believe may be a contributing factor to her elevated BP. Based on patient's history of signficantly elevated BP above her baseline, I believe her HTN is refractory to the lisinopril/HCTZ 12.5mg/10mg half-tablet. Problem Thyroid nodule (763186168) Thyroid nodule (E04.1) Active confirmed Problem Acquired hypothyroidism (588391972) Acquired hypothyroidism (E03.9) Active confirmed Problem Lumbar radiculopathy (923603018) Lumbar neuralgia (M54.16) Active confirmed Problem Claudication (20250596) Claudication (I73.9) Active confirmed Problem Multinodular goiter (845065769) Multinodular goiter (E04.2) Active confirmed Resolved per thyroidectomy in 2017. Currently taking levothyroixine for long-term management of TSH and T4 levels. Will continue to montior with serum TSH. Problem Peripheral arterial disease (132491560) Peripheral arterial disease (I73.9) Active confirmed Problem Environmental allergy (834283688) Environmental allergies (Z91.09) Active confirmed Problem Postoperative hypothyroidism (97179020) Post-surgical hypothyroidism (E89.0) Active confirmed Problem Cystocele (863934546) Cystocele (N81.10) Active confirmed Problem Adult health examination (036515299) Healthcare maintenance (Z00.00) Active confirmed Problem Female urinary stress incontinence (14989789) TORRIE (stress urinary incontinence, female) (N39.3) Active confirmed Problem Abnormal findings on diagnostic imaging of breast (011478999) Abnormal mammogram of both breasts (R92.8) Active confirmed Problem Thyromegaly (6753071) Thyromegaly (E01.0) Active confirmed Problem Acute eczematoid otitis externa (35759392) Dermatitis of both ear canals (H60.543) Active confirmed Vital Signs Heart Rate 74 /min 10/23/2024 Temperature 98.5 degrees Fahrenheit 10/23/2024 Blood pressure diastolic 90 mm Hg 10/23/2024 Height 5 ft 3 in in 10/23/2024 Blood pressure systolic 138 mm Hg 10/23/2024 Weight 198 lbs 10/23/2024 BMI 35.07 kg/m2 10/23/2024 Encounters Encounter Location Date Provider Diagnosis [facility] [address] [place] [address] 05/19/2024 Provider Migration Hypertension, essential I10 [place] [facility] [address] [address] 12/29/2023 Cristiano Terry Hypertension, essential I10 ; Hyperlipemia, idiopathic familial E78.5 ; Multinodular goiter E04.2 ; Obesity (BMI 30.0-34.9) E66.9 ; Post-surgical hypothyroidism E89.0 ; Abnormal mammogram of both breasts R92.8 and Healthcare maintenance Z00.00 [facility] [address] [address] 02/23/2024 Cristiano Terry Hypertension, essential I10 [facility] [address] [address] 03/22/2024 Cristiano Terry Hyperlipemia, idiopathic familial E78.5 ; Vitamin D deficiency E55.9 and Hypertension, essential I10 [place] [facility] [address] [address] 07/24/2024 Cristianosean Terry Hypertension, essential I10 ; Right leg numbness R20.0 ; Right leg pain M79.604 ; Mass of soft tissue of neck M79.89 ; Claudication I73.9 and Lumbar neuralgia M54.16 [facility] [address] [address] 10/23/2024 Cristiano Terry Immunization(s) administered Z23 ; Hypertension, essential I10 ; Multinodular goiter E04.2 and Neck mass R22.1 [facility] [address] [facility] [address] [place], [place] [address] 12/30/2023 Cristianosean Terry Breast cancer screening Z12.31 [facility] [address] [facility] [address] [place], [place] [address] 12/30/2023 Cristianosean Terry Breast cancer screening by mammogram Z12.31 [facility] [address] [address] 02/06/2024 Cristiano Besson [facility] [address] [place] [address] 03/23/2024 Cristiano Besson Hypertension, essential I10 [facility] [address] [place] [address] 03/27/2024 Cristiano Besson [facility] [address] [place] [address] 04/23/2024 Cristiano Besson Hypertension, essential I10 [facility] [address] [place] [address] 06/07/2024 Cristiano Besson [facility] [address] [place] [address] 08/06/2024 Cristiano Besson [facility] [address] [place] [address] 09/13/2024 Cristiano Besson Hypertension, essential I10 [facility] [address] [place] [address] 10/11/2024 Cristiano Besson [facility] [address] [place] [address] 10/16/2024 Cristiano Besson Hypertension, essential I10 [facility] [address] [place] [address] [facility] [address] [place] [address] 10/19/2024 Cristiano Besson Mass of soft tissue of neck M79.89 [facility] [address] [place] [address] 10/23/2024 Cristiano Besson [facility] [address] [facility] [address] [place] [address] 10/25/2024 Cristiano Besson Mass of soft tissue of neck M79.89 Assessments Encounter Date Diagnosis (ICD Code) Assessment Notes Treatment Notes Treatment Clinical Notes Section Notes 12/29/2023 Hyperlipemia, idiopathic familial (ICD-10 - E78.5) On high-dose atorvastatin. No changes in plan 12/29/2023 Hypertension, essential (ICD-10 - I10) Not at goal, has had some dry coughing, this is resolved plan I do not want to go up on LISANDRA inhibitor. Add low-dose carvedilol. Follow-up 6 to 8 weeks to check for efficacy 12/30/2023 Breast cancer screening (ICD-10 - Z12.31) 12/30/2023 Breast cancer screening by mammogram (ICD-10 - Z12.31) 02/23/2024 Hypertension, essential (ICD-10 - I10) Blood pressure is still higher than goal. Patient had a cough to Lisinopril so this was discontinued at last visit. Edema returned with stopping HCTZ. Will start HCTZ 25 mg PO daily, continue Coreg 12.5 mg PO BID. Follow-up in 4 weeks or sooner if needed. Patient voices understanding and agrees with the plan of care above. 03/22/2024 Vitamin D deficiency (ICD-10 - E55.9) History of vitamin D deficiency, will monitor and reevaluate as needed 03/22/2024 Hyperlipemia, idiopathic familial (ICD-10 - E78.5) Check lipid profile. Please note I will review all labs personally. Tolerating atorvastatin well without side effects. 03/23/2024 Hypertension, essential (ICD-10 - I10) 04/23/2024 Hypertension, essential (ICD-10 - I10) 05/19/2024 Hypertension, essential (ICD-10 - I10) 07/24/2024 Hypertension, essential (ICD-10 - I10) Well controlled, continue current regimen 09/13/2024 Hypertension, essential (ICD-10 - I10) 10/16/2024 Hypertension, essential (ICD-10 - I10) 10/19/2024 Mass of soft tissue of neck (ICD-10 - M79.89) 10/23/2024 Hypertension, essential (ICD-10 - I10) Patient reports increased stress at home, which I believe may be a contributing factor to her elevated BP. Based on patient's history of signficantly elevated BP above her baseline, I believe her HTN is refractory to the lisinopril/HCTZ 12.5mg/10mg half-tablet. Blood pressure is doing well. No change in plan 10/23/2024 Immunization(s) administered (ICD-10 - Z23) 10/25/2024 Mass of soft tissue of neck (ICD-10 - M79.89) 07/24/2024 Right leg numbness (ICD-10 - R20.0) Obtain MRI of spine to further evaluate 10/23/2024 Multinodular goiter (ICD-10 - E04.2) Resolved per thyroidectomy in 2017. Currently taking levothyroixine for long-term management of TSH and T4 levels. Will continue to montior with serum TSH. Status post resection. Clinically and biochemically euthyroid 07/24/2024 Right leg pain (ICD-10 - M79.604) Complete Arterial doppler to assess blood flow in right leg 03/22/2024 Hypertension, essential (ICD-10 - I10) Excellent blood pressure control. No changes in plan. Check BMP and other labs. 12/29/2023 Multinodular goiter (ICD-10 - E04.2) Previous TSH normal. 12/29/2023 Obesity (BMI 30.0-34.9) (ICD-10 - E66.9) Discussed better meal planning. 10/23/2024 Neck mass (ICD-10 - R22.1) New neck mass that has developed since March on ultrasound. Ultrasound done, showing mass. Needs CT without contrast to help surgeons better delineate biopsy approach. 07/24/2024 Mass of soft tissue of neck (ICD-10 - M79.89) 12/29/2023 Post-surgical hypothyroidism (ICD-10 - E89.0) 07/24/2024 Claudication (ICD-10 - I73.9) 12/29/2023 Abnormal mammogram of both breasts (ICD-10 - R92.8) Needs repeat mammogram. 07/24/2024 Lumbar neuralgia (ICD-10 - M54.16) 12/29/2023 Healthcare maintenance (ICD-10 - Z00.00) Will catch up mammogram to date. Up-to-date with colon screening Had flu shot at work, otherwise up-to-date with vaccines. Non-smoker. Good health habits otherwise. 07/24/2024 Other Obtain ultrasound of neck to recheck Plan Of Treatment Pending Test Test Name Order Date Mammogram : Bilateral 12/30/2023 Mammogram : Bilateral 04/21/2023 C-CBC 03/22/2017 C-CBC 03/31/2016 C-CBC 04/08/2015 C-BASIC METABOLIC 03/31/2016 C-CMP 09/20/2017 C-CMP 01/22/2014 C-CMP 08/14/2013 C-CMP 04/08/2015 C-CMP 03/22/2017 C-LIPID PANEL 03/22/2017 C-LIPID PANEL 04/08/2015 C-LIPID PANEL 08/14/2013 C-LIPID PANEL 01/22/2014 C-LIPID PANEL 09/20/2017 C-TSH 09/21/2016 C-VITAMIN D, 25-HYDROXY 04/08/2015 C-VITAMIN D, 25-HYDROXY 09/25/2013 VENIPUNCT, ROUTINE* 04/08/2015 C-parathyroid hormone 09/25/2013 M-Hemoglobin A1C 03/27/2020 M-Vitamin D 25 Hydroxy 03/25/2020 M-Vitamin D 25 Hydroxy 02/26/2021 CT NECK SOFT TISSUE WOW 10/19/2024 SCREEN MAMMO W CAD BILAT 12/29/2023 US NECK SOFT TISSUE 07/24/2024 Future Test Test Name Order Date H-VIT D, 25-HYDROXY 03/24/2016 C-THYROID PROFILE 09/21/2018 Next Appt Details Provider Name:Cristiano Terry, 01/29/2025 10:00:00 AM, [address] [place] [address], [phone], Insurance Providers Payer Name Payer Address Payer Phone Subscriber Number Group Number Insured Name Patient Relationship to Insured Coverage Start Date Coverage End Date [facility] [address] [address] [place] [phone] [id number] Nidhi Flannery Self - patient is the insured Medical (General) History Medical History History ICD Code hypertension hyperlipidemia vitamin D deficiency status post replace ment therapy Goiter with thyroid nodules Normal mammogram 03/2018 and 10/2019 - masses in 2020, early repeat with normal mamm and US in 03/2021 Surgical History Surgery Date(Month/Year) thyroidectomy 03/2016 colonoscopy 05/30 Hospitalization History Reason Date(Month/Year) above
== END 2024-12-11 23:59 | disposition home or self-care (01) ==
LOC: RAD 12:52
PROVIDERS: PCP Internal Medicine Adolescent Medicine; Visit Provider Nurse Practitioner
DX: E07.89 Other specified disorders of thyroid (principal); E89.0 Postprocedural hypothyroidism; R59.0 Localized enlarged lymph nodes
CPT/HCPCS: 76536